=== PATIENT | male | born 1985 | race Caucasian/White ===

== ENCOUNTER 2020-10-18 13:03 | Outpatient (CLI) | payer OTHER, SELFPAY ==
--- NOTE | ~2020-10-18 | US_ITS ---
EXAMINATION: US biopsy lymph node DATE: 10/18/2020 14:05 INDICATION: Left neck mass. TECHNIQUE: The procedure including the risks, benefits, and alternatives was discussed with the patie nt. Risks discussed included bleeding and infection. The patient understood the risks and agreed to p roceed. The skin overlying the left neck was prepped and draped in usual sterile fashion. Anesthetic was administered with 1% lidocaine subcutaneously. An 18 gauge core biopsy needle was then used to obtain 6 core biopsy specimens under continuous sonographic guidance. The entry site was cleaned and dressed. There were no immediate complications. FINDINGS: Ultrasound images demonstrate the needle in a 1.8 x 1.2 cm mass that is in or adjacent to t he left submandibular gland. IMPRESSION: 1. Ultrasound-guided core needle biopsy of a 1.8 x 1.2 cm mass that is in or adjacent to the left sub mandibular gland. Reviewed, dictated and finalized at location A. IMPRESSION: 1. Ultrasound-guided core needle biopsy of a 1.8 x 1.2 cm mass that is in or ad jacent to the left submandibular gland.
== END 2020-10-18 13:04 | disposition home or self-care (01) ==
PROVIDERS: PCP Family Medicine; Visit Provider Otolaryngology
DX: R22.1 Localized swelling, mass and lump, neck (principal)
CPT/HCPCS: 38505; 76942; 88305

== ENCOUNTER 2020-11-01 14:57 | Outpatient (CLI) | payer OTHER, SELFPAY ==
[2020-11-06 20:13] LABS: Bartonella henselae IgG Negative; Bartonella henselae IgM Negative; Bartonella quintana IgG Negative; Bartonella quintana IgM Negative
== END 2020-11-01 14:58 | disposition home or self-care (01) ==
PROVIDERS: PCP Family Medicine; Visit Provider Otolaryngology
DX: R22.1 Localized swelling, mass and lump, neck (principal)
CPT/HCPCS: 36415; 86611